=== PATIENT | female | born 1975 | race Caucasian/White ===

== ENCOUNTER 2019-09-08 18:04 | Emergency (ER) | payer SELFPAY ==
--- NOTE | 2019-09-08 18:15 | NUR ---
triage nurse: called to triage, no answer
--- NOTE | 2019-09-08 18:23 | NUR ---
TRIAGE NURSE: CALLED PT BACK, NO ANSWER
--- NOTE | 2019-09-08 18:34 | NUR ---
TRIAGE NURSE: CALLED PT NO ANSWER
== END 2019-09-08 18:38 | disposition left against medical advice (07) ==
LOC: ED 18:30
DX: Z76.0 Encounter for issue of repeat prescription (principal); Z53.21 Procedure and treatment not carried out due to patient leaving prior to being seen by health care provider